=== PATIENT | female | born 1995 | race African-American/Black ===

== ENCOUNTER → 2021-02-25 | Outpatient (CLI) | payer OTHER ==
--- NOTE | 2021-02-25 13:23 | RAD ---
EXAM: OB ULTRASOUND, > 14 WEEKS HISTORY: anatomy survey. COMPARISON: None. TECHNIQUE: Multiple grayscale images, color Doppler, and M-mode images of the uterus are obtained. FINDINGS: There is a single intrauterine gestation in cephalic presentation. The placenta is anterior in locati on without evidence of placenta previa. The amount of amniotic fluid appears appropriate. Amniotic f luid index is 12.0 cm. Cervical length is 4.2 cm. Biometrical data: BPD = 5.23 cm for 21 weeks 6 days. HC = 19.15 cm for 21 weeks 3 days. AC = 16.68 cm for 21 weeks 5 days. FL = 3.74 cm for 21 weeks 6 days. HC/AC ratio = 1.15. Overall, the estimated sonographic gestational age is 21 weeks and 5 days for an estimated date of de livery of 07/03/2021. The estimated date of delivery provided by the last menstrual period is 021. Estimated weight is 449 grams. A 4 chamber heart is identified with positive cardiac activity. The estimated heart rate is vanna ts per minute. Bilateral upper and lower extremities are identified. There is a three-vessel cord with cord insertion visualized. stomach and urinary bladder are identified. Both kidneys are seen. The spine and brain are unremarkable. No obvious anatomic abnormalities are identified. The maternal adnexal regions are unremarkable. IMPRESSION: 1. Single intrauterine fetus with normal heart rate and gestational age based on ultrasound measureme nts of 21 weeks and 5 days. The estimated gestational age based on LMP is 21 weeks and 6 days. 2. Unremarkable anatomy survey. Electronically signed by: Radha Clemens MD (02/25/2021 1:21 PM) [id number]
== END ==
LOC: US 11:33
PROVIDERS: ATTEND Obstetrics & Gynecology
DX: Z34.92 Encounter for supervision of normal pregnancy, unspecified, second trimester (principal); Z3A.21 21 weeks gestation of pregnancy
CPT/HCPCS: 76805